=== PATIENT | female | born 1965 | race Caucasian/White ===

== ENCOUNTER 2016-05-04 10:02 | Emergency (ER) | payer MEDICARE, OTHER ==
[2016-05-04 11:48] LABS: HEMOGLOBIN 15.5 gm/dl (12.3-15.3); RED BLOOD COUNT 4.73 M/UL (4.00-5.10); WHITE BLOOD COUNT 11.1 K/UL (4.5-11.0)
[2016-05-04 12:09] LABS: BUN/CREATININE RATIO 13 (0-10)
== END 2016-05-04 16:00 | disposition home or self-care (01) ==
LOC: ER1 10:02
PROVIDERS: Emergency Medicine
DX: N10 Acute pyelonephritis (principal)
CPT/HCPCS: 36415; 71010; 80053; 81001; 82150; 82550; 82553; 83690; 83874; 84484; 85025; 85610; 85730; 86140; 87086; 93005; 96374; 96375; 99284; J1885; J1956; J2405; J7050; Q9962

== ENCOUNTER 2016-07-27 08:58 | Emergency (ER) | payer MEDICARE, OTHER | END 2016-07-27 12:58 | disposition home or self-care (01) | LOC: ER1 08:58 | DX: S39.012A Strain of muscle, fascia and tendon of lower back, initial encounter (principal); M54.42 Lumbago with sciatica, left side; I10 Essential (primary) hypertension; M06.9 Rheumatoid arthritis, unspecified; F17.210 Nicotine dependence, cigarettes, uncomplicated; X50.9XXA Other and unspecified overexertion or strenuous movements or postures, initial encounter; Y93.E9 Activity, other interior property and clothing maintenance; Y92.009 Unspecified place in unspecified non-institutional (private) residence as the place of occurrence of the external cause | CPT/HCPCS: 72131; 81001; 96372; 99284; J2270; J2930 ==